=== PATIENT | female | born 1945 | race Asian ===

== ENCOUNTER 2024-05-02 15:27 | Inpatient (IN) | payer MEDICARE, OTHER ==
[~2024-05-02] VITALS: Ht 147.3 cm; Wt 54.4 kg
[~2024-05-02 15:27] MED LIST: CIPR5DRO18 RIGHTEYE
[2024-05-02 16:24] LABS: ALANINE AMINOTRANSFERASE 30 U/L (12-78); ALBUMIN 3.6 g/dL (3.4-5.0); ALKALINE PHOSPHATASE 123 U/L (46-116); ASPARTATE AMINOTRANSFERASE 34 U/L (15-37); BILIRUBIN,DIRECT 0.2 mg/dL (0.0-0.2); BILIRUBIN,TOTAL 0.6 mg/dL (0.2-1.0); CALCIUM, SERUM 9.4 mg/dL (8.5-10.1); CARBON DIOXIDE 27 mmol/L (21-32); CHLORIDE 103 mmol/L (98-107); CREATININE 0.7 mg/dL (0.6-1.3); GLUCOSE 94 mg/dL (74-106); POTASSIUM 4.4 mmol/L (3.5-5.1); SODIUM SERUM 138 mmol/L (136-145); TOTAL PROTEIN, SERUM 8.7 g/dL (6.4-8.2); UREA NITROGEN, BLOOD 17 mg/dL (7-18)
[2024-05-02 16:26] LABS: APPEARANCE,URINE CLOUDY (CLEAR); BILIRUBIN,URINE NEGATIVE (NEGATIVE); BLOOD, URINE 3+ Ery/uL (NEGATIVE); COLOR,URINE YELLOW (YELLOW); KETONES,URINE NEGATIVE (NEGATIVE); LEUKOCYTE ESTERASE ,URINE 3+ (NEGATIVE); NITRITE, URINE POSITIVE (NEGATIVE); PROTEIN,URINE 1+ mg/dl (NEGATIVE); UGLUCOSE NEGATIVE (NEGATIVE); UROBILINOGEN,URINE 0.2 EU/dL (0.2)
[2024-05-02 16:26] LABS: BASOPHILS # (AUTO) 0.1 K/uL (0.0-0.2); BASOPHILS % (AUTO) 0.7 % (0.0-2.0); EOSINOPHILS # (AUTO) 0.2 K/uL (0.0-0.7); EOSINOPHILS % (AUTO) 1.8 % (0.0-6.0); HEMATOCRIT 41 % (33-45); HEMOGLOBIN 13.2 g/dL (11.5-14.8); LYMPHOCYTES # (AUTO) 4.7 K/uL (0.8-4.8); LYMPHOCYTES % (AUTO) 53.9 % (20.0-44.0); MEAN CORPUSCULAR HEMOGLOBIN 30 PG (26.0-33.0); MEAN CORPUSCULAR HGB CONC 33 g/dl (31.0-36.0); MEAN CORPUSCULAR VOLUME 91 fL (82-100); MONOCYTES # (AUTO) 0.7 K/uL (0.1-1.30); MONOCYTES % (AUTO) 8.1 % (2.0-12.0); NEUTROPHILS # (AUTO) 3.1 K/uL (1.8-8.9); NEUTROPHILS % (AUTO) 35.5 % (43.0-81.0); PLATELET COUNT (AUTO) 291 K/uL (150-450); RED BLOOD CELL COUNT(AUTO) 4.47 MIL/uL (4.0-5.2); RED CELL DISTRIBUTION WIDTH 16.6 % (11.5-15.0); WHITE BLOOD COUNT (AUTO) 8.7 K/uL (4.3-11.0)
[2024-05-02 16:31] LABS: INR 1.02 (0.91-1.10); PARTIAL THROMBOPLASTIN TIME 28.1 SEC (24.3-34.3); PROTHROMBIN TIME 10.8 SECS (9.2-11.1)
[2024-05-02 16:42] LABS: ADD URINE CULTURE YES; BACTERIA,URINE Few /HPF (None Seen); CALCIUM OXALATE CRYSTALS,UR Few /HPF (None Seen); WBC,URINE 21-50 /HPF (0-3)
[2024-05-02] MEDS ORDERED: OXYB5TAB16 PO (17:04)
[2024-05-02] MEDS ORDERED: SIMV-46 PO (17:04)
[2024-05-02] MEDS ORDERED: MEMA5TAB PO (17:04)
[2024-05-02] MEDS ORDERED: ASCO500T10 PO (17:04)
[2024-05-02] MEDS ORDERED: SENN-261 PO (17:04)
[2024-05-02] MEDS ORDERED: ASPI-1169 PO (17:04)
[2024-05-02] MEDS ORDERED: METH1TAB69 PO (17:04)
[2024-05-02] MEDS ORDERED: ACET-73 PO (17:04)
[2024-05-02] MEDS ORDERED: METF-440 PO (17:04)
[2024-05-02] MEDS ORDERED: LINA5TAB PO (17:04)
[2024-05-02] MEDS ORDERED: FLUT9.9S BNOSTRILS (17:04)
[2024-05-02] MEDS ORDERED: MAGN400O6 PO (17:04)
[2024-05-02] MEDS ORDERED: AMIN30LI25 PO (17:04)
[2024-05-02] MEDS ORDERED: NA P133E RC (17:04)
[2024-05-02] MEDS ORDERED: MIDO10TA PO (17:04)
[2024-05-02] MEDS ORDERED: ESCI5TAB PO (17:04)
[2024-05-02] MEDS ORDERED: ACET325T53 PO (17:04)
[2024-05-02] MEDS ORDERED: MYRBETRIQ ER PO (17:04)
[2024-05-02] MEDS ORDERED: BISA10SU11 RC (17:04)
[2024-05-02] MEDS ORDERED: POTA20PA3 PO (17:04)
[2024-05-02] MEDS ORDERED: SACC250C9 PO (17:04)
[2024-05-02] MEDS ORDERED: FAMO20TA8 PO (17:04)
[2024-05-02] MEDS ORDERED: APIX5TAB PO (17:04)
[2024-05-02] MEDS ORDERED: MULT-213 PO (17:04)
[2024-05-02] MEDS ORDERED: GABA-532 PO (17:04)
[2024-05-02] MEDS ORDERED: INSU100V27 SQ (17:04)
[2024-05-02] MEDS: CEFEPIME 1 GM in IV D5W 50 ML IV ONE (17:30)
[2024-05-02] MEDS: VANCOMYCIN 1 GM in IV D5W 250 ML IV ONE (18:00)
[2024-05-02] MEDS ORDERED: DEXTROSE 50%-WATER 50 ML DISP.SYRIN IV PRN (18:30)
[2024-05-02] MEDS ORDERED: hydrALAZINE HCL IV 20 MG VIAL IV PRN ×2 (18:30)
[2024-05-02] MEDS ORDERED: ACETAMINOPHEN 325 MG TABLET PO PRN (18:30)
[2024-05-02] MEDS ORDERED: MORPHINE SULFATE INJ 2 MG/ML DISP.SYRIN IV PRN (18:30)
[2024-05-02] MEDS ORDERED: ONDANSETRON HCL/PF 4 MG/2 ML VIAL IVP PRN (18:30)
[2024-05-02] MEDS ORDERED: HEPARIN SODIUM, PORCINE 5000 UNITS/1 ML VIAL SQ SCH (21:00)
[2024-05-02] MEDS: SIMVASTATIN 20 MG TABLET PO SCH (21:33)
[2024-05-02] MEDS: IV NS 0.9% 1,000 ML IV SCH (21:33)
[2024-05-02] MEDS: CIPROFLOXACIN HCL 0.3% 5 ML BOTTLE RIGHTEYE SCH (21:34)
[2024-05-02] MEDS: BLOOD SUGAR DIAGNOSTIC 1 EACH STRIP VI SCH (22:30)
[2024-05-03 06:37] LABS: ALBUMIN 2.9 g/dL (3.4-5.0); BILIRUBIN,TOTAL 0.7 mg/dL (0.2-1.0); CALCIUM, SERUM 8.8 mg/dL (8.5-10.1); CREATININE 0.4 mg/dL (0.6-1.3); MAGNESIUM 2.3 mg/dL (1.8-2.4); PHOSPHORUS 4.3 mg/dL (2.5-4.9); POTASSIUM 3.8 mmol/L (3.5-5.1); TOTAL PROTEIN, SERUM 7.6 g/dL (6.4-8.2)
[2024-05-03 06:41] LABS: BASOPHILS % (AUTO) 0.5 % (0.0-2.0); EOSINOPHILS # (AUTO) 0.1 K/uL (0.0-0.7); EOSINOPHILS % (AUTO) 1.5 % (0.0-6.0); HEMATOCRIT 36 % (33-45); HEMOGLOBIN 12.1 g/dL (11.5-14.8); LYMPHOCYTES # (AUTO) 3.3 K/uL (0.8-4.8); LYMPHOCYTES % (AUTO) 40.2 % (20.0-44.0); MEAN CORPUSCULAR HEMOGLOBIN 30 PG (26.0-33.0); MEAN CORPUSCULAR HGB CONC 33 g/dl (31.0-36.0); MEAN CORPUSCULAR VOLUME 90 fL (82-100); MONOCYTES # (AUTO) 0.7 K/uL (0.1-1.30); MONOCYTES % (AUTO) 8.8 % (2.0-12.0); NEUTROPHILS # (AUTO) 4.1 K/uL (1.8-8.9); PLATELET COUNT (AUTO) 254 K/uL (150-450); RED BLOOD CELL COUNT(AUTO) 4.03 MIL/uL (4.0-5.2); RED CELL DISTRIBUTION WIDTH 16.4 % (11.5-15.0); WHITE BLOOD COUNT (AUTO) 8.3 K/uL (4.3-11.0)
[2024-05-03 08:00] VITALS: BP 118/66; TEMP 98.4; O2SAT 96
[2024-05-03] MEDS: FAMOTIDINE (20 MG) 20 MG TABLET PO SCH (08:43)
[2024-05-03] MEDS: FLUTICASONE PROPIONATE 16 GM BOTTLE NS SCH (08:43)
[2024-05-03] MEDS: ASPIRIN 81 MG TAB.CHEW PO SCH (08:43)
[2024-05-03] MEDS: GABAPENTIN 100 MG CAPSULE PO SCH (08:44)
[2024-05-03] MEDS: MIDODRINE HCL (5MG) 5 MG TABLET PO SCH (08:44)
[2024-05-03] MEDS: LINAGLIPTIN 5 MG TABLET PO SCH (08:44)
[2024-05-03] MEDS: ESCITALOPRAM OXALATE (10 MG) 10 MG TABLET PO SCH (08:44)
[2024-05-03] MEDS: OXYBUTYNIN CHLORIDE 5 MG TABLET PO SCH (08:44)
[2024-05-03] MEDS: MEMANTINE HCL 5 MG TABLET PO SCH (08:44)
[2024-05-03] MEDS: APIXABAN 5 MG TABLET PO SCH (08:47)
[2024-05-03] MEDS ORDERED: APIXABAN 5 MG TABLET PO SCH (09:00)
[2024-05-03] MEDS ORDERED: MYRBETRIQ 50 MG PO SCH (09:00)
[2024-05-03] MEDS: THERAHONEY GEL 1.5 OZ TUBE TP SCH (10:49)
[2024-05-03 16:00] VITALS: BP 86/61; TEMP 98.1; O2SAT 96
[2024-05-03] MEDS: VANCOMYCIN 750 MG in IV D5W 250 ML IV SCH (16:27)
[2024-05-03] MEDS: INSULIN REGULAR, HUMAN 100 UNIT/ML 3 ML VIAL SQ PRN (18:14)
[2024-05-03] MEDS: CEFEPIME 1 GM in IV D5W 50 ML IV SCH (19:14)
[2024-05-03 20:00] VITALS: BP 97/66; TEMP 98.2; O2SAT 94; O2SAT 96
[2024-05-04 06:38] LABS: BASOPHILS % (AUTO) 0.4 % (0.0-2.0); EOSINOPHILS # (AUTO) 0.1 K/uL (0.0-0.7); HEMATOCRIT 36 % (33-45); HEMOGLOBIN 11.9 g/dL (11.5-14.8); LYMPHOCYTES # (AUTO) 3.5 K/uL (0.8-4.8); LYMPHOCYTES % (AUTO) 48.8 % (20.0-44.0); MEAN CORPUSCULAR HEMOGLOBIN 30 PG (26.0-33.0); MEAN CORPUSCULAR HGB CONC 33 g/dl (31.0-36.0); MEAN CORPUSCULAR VOLUME 91 fL (82-100); MONOCYTES # (AUTO) 0.7 K/uL (0.1-1.30); NEUTROPHILS # (AUTO) 2.8 K/uL (1.8-8.9); NEUTROPHILS % (AUTO) 39.8 % (43.0-81.0); PLATELET COUNT (AUTO) 233 K/uL (150-450); RED CELL DISTRIBUTION WIDTH 16.5 % (11.5-15.0); WHITE BLOOD COUNT (AUTO) 7.1 K/uL (4.3-11.0)
[2024-05-04 07:01] LABS: CALCIUM, SERUM 8.4 mg/dL (8.5-10.1); CREATININE 0.4 mg/dL (0.6-1.3)
[2024-05-04 08:00] VITALS: BP 136/76; TEMP 97.9; O2SAT 98
[2024-05-04] MEDS: OXYBUTYNIN CHLORIDE ER 5 MG TAB PO SCH (12:29)
[2024-05-04 16:00] VITALS: BP 133/76; TEMP 97.9
[2024-05-04 20:00] VITALS: BP 151/86; TEMP 97.7; O2SAT 96
[2024-05-04] MEDS: *INSULIN REGULAR(HUMULIN R)HUM 100 UNIT/ML VIAL SQ PRN (21:06)
[2024-05-04] MEDS: VANCOMYCIN 750 MG in IV D5W 250 ML IV SCH (23:58)
[2024-05-05 06:46] LABS: BASOPHILS % (AUTO) 0.3 % (0.0-2.0); EOSINOPHILS # (AUTO) 0.1 K/uL (0.0-0.7); EOSINOPHILS % (AUTO) 2.1 % (0.0-6.0); HEMATOCRIT 36 % (33-45); HEMOGLOBIN 12.1 g/dL (11.5-14.8); LYMPHOCYTES # (AUTO) 3.9 K/uL (0.8-4.8); LYMPHOCYTES % (AUTO) 59.7 % (20.0-44.0); MEAN CORPUSCULAR HEMOGLOBIN 31 PG (26.0-33.0); MEAN CORPUSCULAR HGB CONC 34 g/dl (31.0-36.0); MEAN CORPUSCULAR VOLUME 91 fL (82-100); MONOCYTES # (AUTO) 0.5 K/uL (0.1-1.30); MONOCYTES % (AUTO) 8.5 % (2.0-12.0); NEUTROPHILS # (AUTO) 1.9 K/uL (1.8-8.9); NEUTROPHILS % (AUTO) 29.4 % (43.0-81.0); PLATELET COUNT (AUTO) 242 K/uL (150-450); RED BLOOD CELL COUNT(AUTO) 3.96 MIL/uL (4.0-5.2); RED CELL DISTRIBUTION WIDTH 16.8 % (11.5-15.0); WHITE BLOOD COUNT (AUTO) 6.5 K/uL (4.3-11.0)
[2024-05-05 07:34] LABS: CALCIUM, SERUM 8.9 mg/dL (8.5-10.1); CREATININE 0.5 mg/dL (0.6-1.3); POTASSIUM 3.6 mmol/L (3.5-5.1)
[2024-05-05 08:00] VITALS: BP 106/67; TEMP 97.7; O2SAT 99
[2024-05-05 16:00] VITALS: BP 112/71; TEMP 99.1; O2SAT 96
[2024-05-05 20:00] VITALS: BP 126/71; TEMP 98.1; O2SAT 97
[2024-05-06] MEDS: IV NS 0.9% 1,000 ML IV PRN (05:34)
[2024-05-06 06:52] LABS: BASOPHILS # (AUTO) 0.1 K/uL (0.0-0.2); BASOPHILS % (AUTO) 0.9 % (0.0-2.0); EOSINOPHILS # (AUTO) 0.1 K/uL (0.0-0.7); EOSINOPHILS % (AUTO) 2.1 % (0.0-6.0); HEMATOCRIT 36 % (33-45); HEMOGLOBIN 11.6 g/dL (11.5-14.8); LYMPHOCYTES # (AUTO) 3.3 K/uL (0.8-4.8); LYMPHOCYTES % (AUTO) 52.3 % (20.0-44.0); MEAN CORPUSCULAR HEMOGLOBIN 30 PG (26.0-33.0); MEAN CORPUSCULAR HGB CONC 33 g/dl (31.0-36.0); MEAN CORPUSCULAR VOLUME 91 fL (82-100); MONOCYTES # (AUTO) 0.6 K/uL (0.1-1.30); MONOCYTES % (AUTO) 9.4 % (2.0-12.0); NEUTROPHILS # (AUTO) 2.3 K/uL (1.8-8.9); NEUTROPHILS % (AUTO) 35.3 % (43.0-81.0); PLATELET COUNT (AUTO) 249 K/uL (150-450); RED BLOOD CELL COUNT(AUTO) 3.94 MIL/uL (4.0-5.2); RED CELL DISTRIBUTION WIDTH 16.9 % (11.5-15.0); WHITE BLOOD COUNT (AUTO) 6.4 K/uL (4.3-11.0)
[2024-05-06 07:19] LABS: CALCIUM, SERUM 8.9 mg/dL (8.5-10.1); CREATININE 0.4 mg/dL (0.6-1.3); POTASSIUM 3.4 mmol/L (3.5-5.1)
[2024-05-06 08:00] VITALS: BP 121/79; TEMP 98.8; O2SAT 97
[2024-05-06] MEDS ORDERED: POTASSIUM CHLORIDE 20 MEQ TAB.PRT.SR PO SCH (09:30)
[2024-05-06] MEDS: POTASSIUM CHLORIDE 20 MEQ POWDER PACKET PO ONE (10:16)
[2024-05-06] MEDS: MEROPENEM 1 G in IV NS 0.9% 100 ML IV SCH (13:03)
[2024-05-06 16:00] VITALS: BP 109/66; TEMP 99.1; O2SAT 94
[2024-05-06 20:00] VITALS: BP 97/70; TEMP 97.9; O2SAT 95
[2024-05-06 20:29] VITALS: BP 97/70; TEMP 97.9; O2SAT 95
[2024-05-07 08:00] VITALS: BP 97/66; TEMP 98.2; O2SAT 96
[2024-05-07 08:18] LABS: BASOPHILS % (AUTO) 0.6 % (0.0-2.0); EOSINOPHILS # (AUTO) 0.1 K/uL (0.0-0.7); EOSINOPHILS % (AUTO) 2.3 % (0.0-6.0); HEMATOCRIT 36 % (33-45); HEMOGLOBIN 11.7 g/dL (11.5-14.8); LYMPHOCYTES # (AUTO) 3.1 K/uL (0.8-4.8); LYMPHOCYTES % (AUTO) 49.7 % (20.0-44.0); MEAN CORPUSCULAR HEMOGLOBIN 30 PG (26.0-33.0); MEAN CORPUSCULAR HGB CONC 33 g/dl (31.0-36.0); MEAN CORPUSCULAR VOLUME 90 fL (82-100); MONOCYTES # (AUTO) 0.6 K/uL (0.1-1.30); MONOCYTES % (AUTO) 10.6 % (2.0-12.0); NEUTROPHILS # (AUTO) 2.3 K/uL (1.8-8.9); NEUTROPHILS % (AUTO) 36.8 % (43.0-81.0); PLATELET COUNT (AUTO) 245 K/uL (150-450); RED BLOOD CELL COUNT(AUTO) 3.94 MIL/uL (4.0-5.2); RED CELL DISTRIBUTION WIDTH 16.6 % (11.5-15.0); WHITE BLOOD COUNT (AUTO) 6.2 K/uL (4.3-11.0)
[2024-05-07 08:44] LABS: CALCIUM, SERUM 8.8 mg/dL (8.5-10.1); CREATININE 0.5 mg/dL (0.6-1.3); POTASSIUM 3.5 mmol/L (3.5-5.1)
[2024-05-07 16:00] VITALS: BP 95/69; TEMP 97.5; O2SAT 97
[2024-05-07 20:00] VITALS: BP 147/80; TEMP 97.2; O2SAT 94
[2024-05-08 07:54] LABS: BASOPHILS % (AUTO) 0.4 % (0.0-2.0); EOSINOPHILS # (AUTO) 0.1 K/uL (0.0-0.7); EOSINOPHILS % (AUTO) 1.5 % (0.0-6.0); HEMATOCRIT 37 % (33-45); HEMOGLOBIN 12.1 g/dL (11.5-14.8); LYMPHOCYTES # (AUTO) 3.5 K/uL (0.8-4.8); LYMPHOCYTES % (AUTO) 52.5 % (20.0-44.0); MEAN CORPUSCULAR HEMOGLOBIN 30 PG (26.0-33.0); MEAN CORPUSCULAR HGB CONC 33 g/dl (31.0-36.0); MEAN CORPUSCULAR VOLUME 91 fL (82-100); MONOCYTES # (AUTO) 0.5 K/uL (0.1-1.30); MONOCYTES % (AUTO) 8.1 % (2.0-12.0); NEUTROPHILS # (AUTO) 2.5 K/uL (1.8-8.9); NEUTROPHILS % (AUTO) 37.5 % (43.0-81.0); PLATELET COUNT (AUTO) 260 K/uL (150-450); RED BLOOD CELL COUNT(AUTO) 4.04 MIL/uL (4.0-5.2); RED CELL DISTRIBUTION WIDTH 16.6 % (11.5-15.0); WHITE BLOOD COUNT (AUTO) 6.7 K/uL (4.3-11.0)
[2024-05-08 08:00] VITALS: BP 118/68; TEMP 98.1; O2SAT 94
[2024-05-08 08:07] LABS: CREATININE 0.4 mg/dL (0.6-1.3); MAGNESIUM 2.3 mg/dL (1.8-2.4); PHOSPHORUS 3.2 mg/dL (2.5-4.9); POTASSIUM 3.4 mmol/L (3.5-5.1)
[2024-05-08] MEDS: POTASSIUM CHLORIDE 20 MEQ TAB.PRT.SR PO ONE (09:13)
[2024-05-08 16:00] VITALS: BP 149/78; TEMP 98.1; O2SAT 93
[2024-05-08 21:16] VITALS: BP 95/73; TEMP 98.1; O2SAT 96
[2024-05-09 00:43] VITALS: BP 95/73; TEMP 98.1; O2SAT 96
[2024-05-09 07:30] VITALS: BP 119/71; TEMP 98.2; O2SAT 94
[2024-05-09] MEDS ORDERED: MERO1PIG IV (09:39)
[2024-05-09 12:31] VITALS: BP 100/66
== END 2024-05-09 14:15 | DRG 981 ==
LOC: ER 15:30 → MED 18:33 → TELE 20:03 → MED 05-03 13:11
PROVIDERS: ADMIT Internal Medicine; ATTEND Internal Medicine
PROC: 0KBP0ZZ Excision of Left Hip Muscle, Open Approach (ICD-10-PCS; principal; 2024-05-04)
PROC: 0KBN0ZZ Excision of Right Hip Muscle, Open Approach (ICD-10-PCS; 2024-05-04)
DX: N39.0 Urinary tract infection, site not specified (principal); G93.41 Metabolic encephalopathy; L89.154 Pressure ulcer of sacral region, stage 4; R53.2 Functional quadriplegia; D68.59 Other primary thrombophilia; R41.82 Altered mental status, unspecified; I48.91 Unspecified atrial fibrillation; R62.7 Adult failure to thrive; F03.90 Unspecified dementia, unspecified severity, without behavioral disturbance, psychotic disturbance, mood disturbance, and anxiety; I11.0 Hypertensive heart disease with heart failure; I50.9 Heart failure, unspecified; E78.5 Hyperlipidemia, unspecified; E11.9 Type 2 diabetes mellitus without complications; Z74.09 Other reduced mobility; Z95.0 Presence of cardiac pacemaker; K21.9 Gastro-esophageal reflux disease without esophagitis; R13.10 Dysphagia, unspecified; F29 Unspecified psychosis not due to a substance or known physiological condition; F32.A Depression, unspecified; F41.9 Anxiety disorder, unspecified; Z91.018 Allergy to other foods; Z79.4 Long term (current) use of insulin; Z79.84 Long term (current) use of oral hypoglycemic drugs; Z79.51 Long term (current) use of inhaled steroids; Z79.82 Long term (current) use of aspirin; Z79.01 Long term (current) use of anticoagulants; Z79.899 Other long term (current) drug therapy; B96.89 Other specified bacterial agents as the cause of diseases classified elsewhere; R74.8 Abnormal levels of other serum enzymes; Z87.440 Personal history of urinary (tract) infections; N32.81 Overactive bladder
CPT/HCPCS: 36415; 70450-TC; 71045-TC; 80048-TC; 80053-TC; 80076-TC; 80202-TC; 81001; 82962-TC; 83605-TC; 83735-TC; 84100-TC; 85025-TC; 85730-TC; 87040-TC; 87081-TC; 87086-TC; 87186-TC; A4223; A6403; G0378; J0692; J1815; J2185; J3370; J3371; J7030; J7060